=== PATIENT | male | born 1945 | race Caucasian/White ===

== ENCOUNTER 2020-12-15 04:41 | Day surgery (SDC) | payer OTHER, MEDICARE | END 2020-12-15 09:22 | disposition home or self-care (01) | LOC: JASU-ENDO 04:41 | PROVIDERS: ATTEND Internal Medicine Gastroenterology | PROC: 0DBL8ZX Excision of Transverse Colon, Via Natural or Artificial Opening Endoscopic, Diagnostic (ICD-10-PCS; 2020-12-15) | PROC: 0DBN8ZX Excision of Sigmoid Colon, Via Natural or Artificial Opening Endoscopic, Diagnostic (ICD-10-PCS; 2020-12-15) | PROC: 0DBM8ZX Excision of Descending Colon, Via Natural or Artificial Opening Endoscopic, Diagnostic (ICD-10-PCS; principal; 2020-12-15 08:00) | DX: D12.3 Benign neoplasm of transverse colon (principal); K63.5 Polyp of colon; K59.00 Constipation, unspecified; K56.2 Volvulus; R93.3 Abnormal findings on diagnostic imaging of other parts of digestive tract; Z86.010 Personal history of colon polyps | CPT/HCPCS: 88305-TC ==